=== PATIENT | male | born 1960 | race Caucasian/White ===

== ENCOUNTER → 2017-09-09 | Outpatient (CLI) | payer BC, OTHER | LOC: CAT 08:36 | DX: J32.9 Chronic sinusitis, unspecified (principal) ==

== ENCOUNTER → 2018-03-24 | Outpatient (CLI) | payer BC, OTHER | LOC: CAT 09:13 | DX: K44.9 Diaphragmatic hernia without obstruction or gangrene (principal); K42.9 Umbilical hernia without obstruction or gangrene; K80.20 Calculus of gallbladder without cholecystitis without obstruction; N28.1 Cyst of kidney, acquired; E88.89 Other specified metabolic disorders; Z90.49 Acquired absence of other specified parts of digestive tract ==